=== PATIENT | female | born 1980 | race Caucasian/White ===

== ENCOUNTER → 2021-08-24 14:47 | Outpatient (CLI) | payer BC, SELFPAY ==
--- NOTE | ~2021-08-24 | US_ITS ---
EXAMINATION: US pelvic complete DATE: 08/24/2021 15:06 INDICATION: Displacement of the intrauterine device, initial. Missing strings. TECHNIQUE: Multiple transabdominal sonographic images of the pelvis were obtained. COMPARISON: None. FINDINGS: The uterus measures 10.0 x 5.8 x 6.7 cm. There is no free fluid in the pelvis. There is a 1.7 cm intr amural fibroid. The endometrial complex measures 7 mm in thickness. There is an intrauterine device i n expected position. The right ovary measures 3.3 x 2.5 x 2.7 cm. The left ovary measures 3.3 x 1.3 x 2.4 cm. IMPRESSION: 1. Intrauterine device in expected position. 2. Uterine fibroid. Reviewed, dictated and finalized at location A. T END SOFTWARE DEVELOPER
== END ==
PROVIDERS: Visit Provider Nurse Practitioner
DX: T83.32XA Displacement of intrauterine contraceptive device, initial encounter (principal); D25.1 Intramural leiomyoma of uterus
CPT/HCPCS: 76856

== ENCOUNTER → 2023-07-27 09:03 | Outpatient (CLI) | payer BC, SELFPAY ==
--- NOTE | ~2023-07-27 | XR_ITS ---
XR cervical spine 4-5V DATE: 07/27/2023 09:26 INDICATION: Cervical radiculopathy TECHNIQUE: AP, open-mouth, odontoid, lateral and swimmer views COMPARISON: None FINDINGS: C1 and C2 are normally aligned and the odontoid process is intact. There is no fracture or dislocation, locked facet or prevertebral soft tissue swelling. There is mild anterior spurring at C5-6. There is moderate posterior spurring at C6-7 Cervical inters paces appear well preserved throughout. IMPRESSION: Mild anterior spurring at C5-6 and moderate posterior spurring at C6-7; otherwise unremar kable examination Reviewed, dictated and finalized at location B. ROOM MANAGER IMPRESSION: Mild anterior spurring at C5-6 and moderate posterior spurring at C 6-7; otherwise unremarkable examination
== END ==
PROVIDERS: PCP Nurse Practitioner Family; Visit Provider Nurse Practitioner Family
DX: R51.9 Headache, unspecified (principal); M54.12 Radiculopathy, cervical region
CPT/HCPCS: 72050